=== PATIENT | male | born 1995 | race Two or more races ===

== ENCOUNTER 2020-06-22 11:18 | Emergency (ER) | payer SELFPAY ==
[2020-06-22 11:25] VITALS: BP 120/78; PULSE 78; TEMP 98.4; BMI 26.2
== END 2020-06-22 11:54 | disposition home or self-care (01) ==
LOC: JERFT 11:18
DX: H10.33 Unspecified acute conjunctivitis, bilateral (principal)
CPT/HCPCS: 99283-25